=== PATIENT | male | born 1955 | race Caucasian/White ===

== ENCOUNTER 2017-09-01 17:12 | Emergency (ER) | payer MEDICARE, OTHER ==
[~2017-09-01] VITALS: Ht 172.7 cm; Wt 93.0 kg
[2017-09-01] MEDS ORDERED: IBUP800 PO (17:47)
[2017-09-01] MEDS ORDERED: AMPDEX10CR PO (17:48)
[2017-09-01] MEDS ORDERED: Omeprazole20 M1 PO (17:48)
[2017-09-01] MEDS ORDERED: TAMS.4ER PO (17:48)
[2017-09-01] MEDS ORDERED: IBUP600 PO (19:10)
[2017-09-01] MEDS ORDERED: Norco 5-325 Ta1 EACH PO (19:10)
[2017-09-05] MEDS ORDERED: Percocet 10-321 EACH PO (17:03)
== END 2017-09-01 19:27 | disposition home or self-care (01) ==
LOC: ER 17:12
DX: S42.291A Other displaced fracture of upper end of right humerus, initial encounter for closed fracture (principal); V86.56XA Driver of dirt bike or motor/cross bike injured in nontraffic accident, initial encounter; Z79.899 Other long term (current) drug therapy; K21.9 Gastro-esophageal reflux disease without esophagitis; F17.200 Nicotine dependence, unspecified, uncomplicated
CPT/HCPCS: 96372; 99283; J2405; J3010

== ENCOUNTER 2017-12-14 02:09 | Day surgery (SDC) | payer MEDICARE, OTHER ==
[~2017-12-14] VITALS: Ht 172.7 cm; Wt 94.0 kg
[~2017-12-14 02:09] MED LIST: AMPDEX10CR PO; AMPDEX5 PO; ASPI325 PO; ASPI325EC PO; ATOR40TA PO; IBUP400 PO; IBUP600 PO; IBUP800 PO; Norco 5-325 Ta1 EACH PO; Omeprazole20 M1 PO; Percocet 10-321 EACH PO; TAMS.4ER PO; TIMO 0.5%-DORZ 25 ML OP
[2017-12-14] MEDS ORDERED: METO25ER PO (06:34)
[2017-12-14] MEDS ORDERED: Isosorbide Mono30 MG PO (08:34)
== END 2017-12-14 12:40 | disposition home or self-care (01) ==
LOC: MHTC 02:09
DX: R07.9 Chest pain, unspecified (principal); R94.39 Abnormal result of other cardiovascular function study; R06.02 Shortness of breath; E78.5 Hyperlipidemia, unspecified; K21.9 Gastro-esophageal reflux disease without esophagitis; J44.9 Chronic obstructive pulmonary disease, unspecified; F17.210 Nicotine dependence, cigarettes, uncomplicated; I25.118 Atherosclerotic heart disease of native coronary artery with other forms of angina pectoris; I51.89 Other ill-defined heart diseases
CPT/HCPCS: 93306; 93458; 99152; 99153; C1769; C1894; J1644; J2250; J3010; J7030; Q9967

== ENCOUNTER 2018-06-13 19:05 | Emergency (ER) | payer MEDICARE, OTHER ==
[~2018-06-13] VITALS: Ht 172.7 cm; Wt 95.2 kg
[~2018-06-13 19:05] MED LIST changes: -ATOR40TA PO; +Advair Hfa 230-12 GM; +Amiodarone HCl200 MG PO; +Isosorbide Mono30 MG PO; -Omeprazole20 M1 PO; -TAMS.4ER PO; -TIMO 0.5%-DORZ 25 ML OP
[2018-06-13 20:34] LABS: Influenza A Negative (NEGATIVE); Influenza B Negative (NEGATIVE)
[2018-06-13 20:46] LABS: BASOPHILS ABSOLUTE AUTO 0.04 K/mm3 (0.00-0.23); BASOPHILS PERCENT AUTO 1 % (0-2); EOSINOPHILS ABSOLUTE AUTO 0.08 K/mm3 (0.00-0.68); EOSINOPHILS PERCENT AUTO 1 % (0-6); Hematocrit 46.2 % (37.0-53.0); Hemoglobin 15.1 g/dL (13.5-17.5); IMMATURE GRAN ABSOLUTE AUTO 0.03 K/mm3 (0.00-0.10); IMMATURE GRAN PERCENT AUTO 0 % (0-1); LYMPHOCYTES ABSOLUTE AUTO 0.98 K/mm3 (0.84-5.20); LYMPHOCYTES PERCENT AUTO 12 % (21-46); MONOCYTES ABSOLUTE AUTO 0.66 K/mm3 (0.16-1.47); MONOCYTES PERCENT AUTO 8 % (4-13); Mean Corpuscular HGB 30.4 pg (26.0-34.0); Mean Corpuscular HGB Conc 32.7 g/dL (31.5-36.5); Mean Corpuscular Volume 93 fL (80-100); Mean Platelet Volume 10.6 fL (9.1-12.4); NEUTROPHILS ABSOLUTE AUTO 6.41 K/mm3 (1.96-9.15); NEUTROPHILS PERCENT AUTO 78 % (41-73); Platelet Count 264 K/mm3 (150-400); RDW Coefficient Variation 15.6 % (11.7-14.2); RDW Standard Deviation 53.3 fL (35.1-46.3); Red Blood Cell Count 4.97 M/mm3 (4.30-5.90)
[2018-06-13 21:10] LABS: Troponin I 0.021 ng/mL (0.000-0.040)
[2018-06-13 21:12] LABS: Alanine Aminotransfer (ALT/SGP 50 U/L (12-78); Albumin, Blood 3.6 g/dL (3.4-5.0); Albumin/Globulin Ratio 0.9 (0.8-1.8); Alk Phos 176 U/L (50-136); Anion Gap 6 mmol/L (6-16); Aspartate Aminotrans (AST/SGOT 38 U/L (12-37); Bilirubin, Total 0.7 mg/dL (0.1-1.0); Blood Urea Nitrogen 7 mg/dL (8-24); Bun/Creatinine Ratio 8.5 (12.0-20.0); CO2, Blood 23 mmol/L (21-32); Calcium, Blood 8.7 mg/dL (8.5-10.1); Chloride, Blood 109 mmol/L (98-108); Creatinine, Blood 0.82 mg/dL (0.60-1.20); Globulin, Blood 4.2 g/dL (2.2-4.0); Glomerular Filtration Rate >60 (60-); Glucose, Blood 127 mg/dL (70-99); Potassium, Blood 3.6 mmol/L (3.5-5.5); Sodium, Blood 138 mmol/L (136-145); Total Protein, Blood 7.8 g/dL (6.4-8.2)
[2018-06-14 01:15] LABS: Source, Urine Clean Catch
[2018-06-14] MEDS ORDERED: Vibramycin100 MG PO (01:17)
[2018-06-14 01:18] LABS: Bilirubin, Urine Neg (Neg); Blood, Urine Neg (Neg); Glucose Qualitative, Urine Neg (Neg); Ketones, Urine 1+ (Neg); Leukocyte Esterase, Urine Neg (Neg); Nitrite, Urine Neg (Neg); Protein, Urine Neg (Neg); Urobilinogen, Urine 1+ (Normal)
[2018-06-14 01:19] LABS: Appearance, Urine Clear (Clear); Color, Urine Yellow (P-Yellow)
[2018-06-14 01:40] LABS: U Amphetamine Screen DETECTED; U Barbituate Screen Not Detected; U Benzodiazapine Screen Not Detected; U Buprenorphine Screen Not Detected; U Cannabinoids Screen DETECTED; U Cocaine Screen Not Detected; U Methadone Screen Not Detected; U Methamphetamine Screen DETECTED; U Opiates Screen Not Detected; U Oxycodone Screen Not Detected; U Phencyclidine Screen Not Detected; U Propoxyphene Screen Not Detected
[2018-06-14] MEDS ORDERED: Prednisone20 MG PO (01:57)
[2018-06-15] MEDS ORDERED: Amphetamine Sal20 MG PO (16:40)
[2018-06-15] MEDS ORDERED: ATOR40TA PO (16:41)
[2018-06-15] MEDS ORDERED: Doxycycline Hy100 MG PO (16:44)
[2018-06-15] MEDS ORDERED: IBUP800 PO (16:47)
[2018-06-15] MEDS ORDERED: FLUT1DIS5 INH (16:47)
[2018-06-15] MEDS ORDERED: METO50ER PO (16:48)
[2018-06-15] MEDS ORDERED: NITR.4SL SL (16:50)
[2018-06-15] MEDS ORDERED: Omeprazole20 M1 PO (16:50)
[2018-06-15] MEDS ORDERED: TAMS.4ER PO (16:51)
[2018-06-15] MEDS ORDERED: TIMOPTIC 0.25%1 EACH BOTHEYES (16:55)
[2018-06-15] MEDS ORDERED: ASPI325EC PO (16:57)
[2018-06-15] MEDS ORDERED: FURO20 PO (16:59)
[2018-06-15] MEDS ORDERED: POTCHL20ER PO (17:00)
== END 2018-06-14 02:28 | disposition home or self-care (01) ==
LOC: ER 19:05
PROVIDERS: Emergency Medicine; Physician Assistant
DX: J44.1 Chronic obstructive pulmonary disease with (acute) exacerbation (principal); F15.90 Other stimulant use, unspecified, uncomplicated; I25.10 Atherosclerotic heart disease of native coronary artery without angina pectoris; F17.210 Nicotine dependence, cigarettes, uncomplicated; Z88.1 Allergy status to other antibiotic agents; Z88.8 Allergy status to other drugs, medicaments and biological substances; Z79.899 Other long term (current) drug therapy; Z95.1 Presence of aortocoronary bypass graft
CPT/HCPCS: 36415; 71046; 80053; 81003; 83605; 84484; 85025; 87804; 93005; 93010; 94644; 96365; 96375; 99285-25; J0696; J1885; J2930; J7030

== ENCOUNTER 2018-06-15 15:51 | Observation (INO) | payer MEDICARE, OTHER ==
[~2018-06-15] VITALS: Ht 172.7 cm; Wt 94.8 kg
[~2018-06-15 15:51] MED LIST changes: -ALBU3IS INH; -ATOR40TA PO; -AZIT250 PO; -Amphetamine Sal20 MG PO; -Doxycycline Hy100 MG PO; -FLUT1DIS5 INH; -FURO20 PO; -METO50ER PO; -NICO21TP TOP; -NITR.4SL SL; -OXYC5 PO; -Omeprazole20 M1 PO; -POTCHL20ER PO; -PRED10 PO; -ROBITUSSIN100 MG/5 M PO; -TAMS.4ER PO; -TIMOPTIC 0.25%1 EACH BOTHEYES
[2018-06-15] MEDS ORDERED: Amphetamine Sal20 MG PO (16:40)
[2018-06-15] MEDS ORDERED: ATOR40TA PO (16:41)
[2018-06-15] MEDS ORDERED: Doxycycline Hy100 MG PO (16:44)
[2018-06-15] MEDS ORDERED: FLUT1DIS5 INH (16:47)
[2018-06-15] MEDS ORDERED: IBUP800 PO (16:47)
[2018-06-15] MEDS ORDERED: METO50ER PO (16:48)
[2018-06-15] MEDS ORDERED: Omeprazole20 M1 PO (16:50)
[2018-06-15] MEDS ORDERED: NITR.4SL SL (16:50)
[2018-06-15] MEDS ORDERED: TAMS.4ER PO (16:51)
[2018-06-15] MEDS ORDERED: TIMOPTIC 0.25%1 EACH BOTHEYES (16:55)
[2018-06-15] MEDS ORDERED: ASPI325EC PO (16:57)
[2018-06-15] MEDS ORDERED: FURO20 PO (16:59)
[2018-06-15] MEDS ORDERED: POTCHL20ER PO (17:00)
--- NOTE | 2018-06-15 18:45 | NUR ---
HANDOFF RECEIVED FROM ED RECEIVED REPORT FROM ED NURSE HUNG. PT WENT TO [facility] WITH SOB, ABD. PAIN WITH COUGH. [facility] SENT HIM TO US WITH ELEVATED TROPONINS 0.074. PT HX INCLUDES ASCVD, COPD, HEP C, A FIB, BLIND IN LEFT EYE
--- NOTE | 2018-06-16 00:47 | NUR ---
RESPIRATORY PANEL COLLECTED AND SENT TO LAB.
[2018-06-16 02:32] LABS: Hematocrit 44.2 % (37.0-53.0); Hemoglobin 14.7 g/dL (13.5-17.5); Mean Corpuscular HGB 30.9 pg (26.0-34.0); Mean Corpuscular HGB Conc 33.3 g/dL (31.5-36.5); Mean Corpuscular Volume 93 fL (80-100); Mean Platelet Volume 10.2 fL (9.1-12.4); Platelet Count 255 K/mm3 (150-400); RDW Coefficient Variation 15.9 % (11.7-14.2); RDW Standard Deviation 54.4 fL (35.1-46.3); Red Blood Cell Count 4.75 M/mm3 (4.30-5.90); White Blood Cell Count 8.75 K/mm3 (4.00-11.30)
[2018-06-16 02:51] LABS: Alanine Aminotransfer (ALT/SGP 69 U/L (12-78); Albumin, Blood 3.3 g/dL (3.4-5.0); Albumin/Globulin Ratio 0.9 (0.8-1.8); Alk Phos 131 U/L (50-136); Anion Gap 9 mmol/L (6-16); Aspartate Aminotrans (AST/SGOT 89 U/L (12-37); Bilirubin, Total 0.4 mg/dL (0.1-1.0); Blood Urea Nitrogen 19 mg/dL (8-24); CO2, Blood 20 mmol/L (21-32); Calcium, Blood 8.9 mg/dL (8.5-10.1); Chloride, Blood 110 mmol/L (98-108); Creatinine, Blood 0.79 mg/dL (0.60-1.20); Globulin, Blood 3.8 g/dL (2.2-4.0); Glomerular Filtration Rate >60 (60-); Glucose, Blood 142 mg/dL (70-99); Potassium, Blood 4.3 mmol/L (3.5-5.5); Sodium, Blood 139 mmol/L (136-145); Total Protein, Blood 7.1 g/dL (6.4-8.2)
[2018-06-16 03:12] LABS: Adenovirus Not Detected (NOT DETECT); Coronavirus 229E Not Detected (NOT DETECT); Coronavirus HKU1 Not Detected (NOT DETECT); Coronavirus NL63 Not Detected (NOT DETECT); Coronavirus OC43 Not Detected (NOT DETECT); Human Metapneumovirus Not Detected (NOT DETECT); Human Rhinovirus/Enterovirus Not Detected (NOT DETECT); Influenza A Not Detected (NOT DETECT); Influenza A/2009-H1 Not Detected (NOT DETECT); Influenza A/H1 Not Detected (NOT DETECT); Influenza A/H3 Not Detected (NOT DETECT); Influenza B Not Detected (NOT DETECT); Parainfluenza Virus 1 Not Detected (NOT DETECT); Parainfluenza Virus 2 Not Detected (NOT DETECT)
[2018-06-16 03:13] LABS: Bordetella pertussis Not Detected (NOT DETECT); Chlamydophila pneumoniae Not Detected (NOT DETECT); Mycoplasma pneumoniae Not Detected (NOT DETECT); Parainfluenza Virus 3 Not Detected (NOT DETECT); Parainfluenza Virus 4 Not Detected (NOT DETECT); Respiratory Syncytial Virus Detected (NOT DETECT)
--- NOTE | 2018-06-16 04:43 | NUR ---
SHIFT SUMMARY PATIENT HAD NO ACUTE CHANGES OBSERVED THIS SHIFT. AXO X 4 AND INDEPENDENT IN THE ROOM. BLIND LEFT EYE. USES URINAL AT BEDSIDE. TAKES MEDICATION WHOLE WITH WATER. PIV REMAINS INTACT. PLANT CONTROLLER REPORTS NSR 97 W/FIRST DEGREE. VSS/SFEBRILE. RESPIRATORY PANEL SENT TO LAB AND POSITIVE FOR RSV. DROPLET PRECAUTIONS. PATIENT REPORTED COUGH AND GUAFENESIN GIVEN PER EMAR. PATIENT COUGH REDUCED AND ABLE TO SLEEP. DENIES PAIN AND N/V. CALL LIGHT IN REACH. BED IN LOWEST POSITION. WILL CONTINUE TO MONITOR UNTIL DAY SHIFT NURSE ASSUMES CARE.
--- NOTE | 2018-06-16 07:52 | NUR ---
CALLED PT'S DR HUDSON REPORTING SEVERE ABDOMINAL PAIN. PT STATES HE FEELS HE HAS TORN SOMETHING INSIDE HIS STOMACH. PT STATES HE WISHES TO LEAVE IF THIS IS NOT INVESTIGATED. ORDERED 1 MG OF DILAUDID IV NOW, WHILE HE LOOKS IN TO THE PT'S CASE.
--- NOTE | 2018-06-16 09:08 | NUR ---
CALLED PHARMACY 06/16/18 AT 0900 HRS -TALKED TO ON-DUTY PHARMACIST I ASKED HER IF ADDERAL COULD CAUSE A DRUG SCREEN TO COME BACK POSITIVE FOR BOTH AMPHETAMINE AND METHAMPHETAMINE. SHE EMPHATICALLY STATED "YES, WITHOUT A DOUBT; ADDERAL DOES CAUSE A DRUG SCREEN TO COME BACK POSITIVE FOR AMPHETAMINE AND METHAMPHETAMINE".
--- NOTE | 2018-06-16 10:02 | NUR ---
PHARMACY CALLED PHARMACIST ELAINA CALLED TO CLARIFY ORDER FOR TIMOLOL EYE DROPS. PT STATES THE DROPS GO IN HIS LEFT EYE. PT STATES HE HAS NOT BEEN TAKING THEM HE IS ALREADY BLIND.
--- NOTE | 2018-06-16 13:59 | NUR ---
HOSPITALIST ROUNDED ON PT STATED THAT TROPONINS HAVE IMPROVED, DOWNTRENDING FROM 0.[address] INFORMED PT THAT THE SEVERE COUGHING FITS FROM HIS RSV HAS STRAINED/TORN HIS STOMACH MUSCLES, EXPLAINING THE SEVERE PAIN.
--- NOTE | 2018-06-16 14:13 | NUR ---
CALLED HOSPITALIST PT REFUSING TO WEAR TELEMETRY. STATES THAT HIS HEART IS NOT THE PROBLEM, RE-STATING THAT HIS STOMACH PAIN IS THE MAIN ISSUE THAT NEEDS ADDRESSED. CALLED TO ASK THAT TELEMETRY BE DISCONTINUED DUE TO PT REFUSAL TO WEAR IT. AGREED TO DISCONTINUE TELEMETRY.
--- NOTE | 2018-06-16 16:11 | NUR ---
SHIFT SUMMARY 62 YEAR OLD MALE ADMITTED FOR COPD EXACERBATION/ELEVATED TROPONIN LEVEL. PT IS A LIMITED CODE (NO CPR, DEFIB IS OKAY). HE IS IN CONTACT/DROPLET PRECAUTIONS FOR RSV. 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 HE IS A&O X4, INDEPENDENT. TODAY HE GOT AN ABDOMINAL BINDER TO HELP WITH HIS ABDOMINAL PAIN FROM COUGHING. ALSO THE HOSPITALIST ORDERED OXYCODONE FOR HIS ABDOMINAL PAIN. IT IS POSSIBLE THAT THE PT TORE/STRAINED AN ABDOMINAL MUSCLE WHILE COUGHING. PT PERIODICALLY REFUSES TREATMENTS, TESTS, AND MEDICATIONS. HE STATES IT IS BECAUSE HE IS IN PAIN AND/OR UPSET WITH HIS CARE. I FEEL THAT OVERALL TODAY WENT BETTER THAN YESTERDAY FOR THIS PATIENT.
[2018-06-17] MEDS ORDERED: AZIT250 PO (13:13)
[2018-06-17] MEDS ORDERED: ALBU3IS INH (13:13)
[2018-06-17] MEDS ORDERED: PRED10 PO (13:14)
[2018-06-17] MEDS ORDERED: NICO21TP TOP (13:14)
[2018-06-17] MEDS ORDERED: OXYC5 PO (13:15)
[2018-06-17] MEDS ORDERED: ROBITUSSIN100 MG/5 M PO (13:15)
--- NOTE | 2018-06-17 13:40 | NUR ---
PATIENT D/C'D TO HOME WITH . D/C ISNTRUCTIONS AND EDUCATION DISCUSSED WITH PATIENT AND COPY PROVIDED. MEDICATIONS FAXED TO [facility] IN [place]. PATIENT DENIES ANY FURTHER QUESTIONS OR CONCERNS.
== END 2018-06-17 13:39 | disposition home or self-care (01) ==
LOC: ER 15:51 → MEDS 15:52 → ER 17:20 → MEDS 17:20
PROVIDERS: Nurse Practitioner Acute Care; ADMIT Internal Medicine
DX: J44.0 Chronic obstructive pulmonary disease with (acute) lower respiratory infection (principal); J44.1 Chronic obstructive pulmonary disease with (acute) exacerbation; J20.5 Acute bronchitis due to respiratory syncytial virus; E78.5 Hyperlipidemia, unspecified; S39.011A Strain of muscle, fascia and tendon of abdomen, initial encounter; R77.8 Other specified abnormalities of plasma proteins; N40.0 Benign prostatic hyperplasia without lower urinary tract symptoms; I10 Essential (primary) hypertension; I25.10 Atherosclerotic heart disease of native coronary artery without angina pectoris; F32.9 Major depressive disorder, single episode, unspecified; E66.9 Obesity, unspecified; F17.210 Nicotine dependence, cigarettes, uncomplicated; Z95.1 Presence of aortocoronary bypass graft; Z79.899 Other long term (current) drug therapy; Z79.82 Long term (current) use of aspirin; Z88.8 Allergy status to other drugs, medicaments and biological substances; Z68.31 Body mass index [BMI] 31.0-31.9, adult
CPT/HCPCS: 36415; 80053; 83735; 84484; 85027; 87486; 87581; 87633; 87798; 93005; 93010; 94640; 94760; 96372-59; 96374; 96375; 99285-25; G0378; J1170; J1650; J2930

== ENCOUNTER → 2018-06-15 | Outpatient (CLI) | payer MEDICARE, OTHER ==
[~2018-06-15] MED LIST changes: +ALBU3IS INH; +ATOR40TA PO; +AZIT250 PO; +Amphetamine Sal20 MG PO; +Doxycycline Hy100 MG PO; +FLUT1DIS5 INH; +FURO20 PO; +METO50ER PO; +NICO21TP TOP; +NITR.4SL SL; +OXYC5 PO; +Omeprazole20 M1 PO; +POTCHL20ER PO; +PRED10 PO; +Prednisone20 MG PO; +ROBITUSSIN100 MG/5 M PO; +TAMS.4ER PO; +TIMOPTIC 0.25%1 EACH BOTHEYES; +Vibramycin100 MG PO
[2018-06-15 14:45] LABS: BASOPHILS ABSOLUTE AUTO 0.02 K/mm3 (0.00-0.23); BASOPHILS PERCENT AUTO 0 % (0-2); EOSINOPHILS ABSOLUTE AUTO 0.02 K/mm3 (0.00-0.68); EOSINOPHILS PERCENT AUTO 0 % (0-6); Hematocrit 45.3 % (37.0-53.0); Hemoglobin 15.3 g/dL (13.5-17.5); IMMATURE GRAN ABSOLUTE AUTO 0.05 K/mm3 (0.00-0.10); IMMATURE GRAN PERCENT AUTO 0 % (0-1); LYMPHOCYTES ABSOLUTE AUTO 0.48 K/mm3 (0.84-5.20); LYMPHOCYTES PERCENT AUTO 4 % (21-46); MONOCYTES ABSOLUTE AUTO 0.54 K/mm3 (0.16-1.47); MONOCYTES PERCENT AUTO 5 % (4-13); Mean Corpuscular HGB 30.7 pg (26.0-34.0); Mean Corpuscular HGB Conc 33.8 g/dL (31.5-36.5); Mean Corpuscular Volume 91 fL (80-100); Mean Platelet Volume 10.9 fL (9.1-12.4); NEUTROPHILS ABSOLUTE AUTO 10.56 K/mm3 (1.96-9.15); NEUTROPHILS PERCENT AUTO 91 % (41-73); Platelet Count 263 K/mm3 (150-400); RDW Coefficient Variation 16.1 % (11.7-14.2); RDW Standard Deviation 53.1 fL (35.1-46.3); Red Blood Cell Count 4.99 M/mm3 (4.30-5.90); White Blood Cell Count 11.67 K/mm3 (4.00-11.30)
[2018-06-15 14:59] LABS: Alanine Aminotransfer (ALT/SGP 78 U/L (12-78); Albumin, Blood 3.5 g/dL (3.4-5.0); Albumin/Globulin Ratio 0.9 (0.8-1.8); Alk Phos 144 U/L (40-126); Anion Gap 13 mmol/L (6-16); Aspartate Aminotrans (AST/SGOT 121 U/L (12-37); Bilirubin, Total 0.6 mg/dL (0.1-1.0); Blood Urea Nitrogen 13 mg/dL (8-24); Bun/Creatinine Ratio 11.4 (12.0-20.0); CO2, Blood 22 mmol/L (21-32); Calcium, Blood 8.7 mg/dL (8.5-10.1); Chloride, Blood 106 mmol/L (98-108); Creatinine, Blood 1.14 mg/dL (0.60-1.20); Globulin, Blood 4.1 g/dL (2.2-4.0); Glomerular Filtration Rate >60 (60-); Glucose, Blood 123 mg/dL (70-99); Potassium, Blood 4.3 mmol/L (3.5-5.5); Sodium, Blood 141 mmol/L (136-145); Total Protein, Blood 7.6 g/dL (6.4-8.2); Troponin I 0.074 ng/mL (0.000-0.040)
== END | disposition home or self-care (01) ==
LOC: LAB SHORT 14:37 → LAB EV 14:37
PROVIDERS: Physician Assistant Surgical
DX: R06.02 Shortness of breath (principal)
CPT/HCPCS: 80053; 83880; 84484; 85025

== ENCOUNTER 2018-07-27 09:04 | Day surgery (SDC) | payer MEDICARE, OTHER ==
[~2018-07-27] VITALS: Ht 173 cm; Wt 95.9 kg
[~2018-07-27 09:04] MED LIST changes: +ALBU3IS INH; +ALBU90OI61 INH; +ASPIRIN PO; +ATOR40TA PO; +AZIT250 PO; +Amphetamine Sal20 MG PO; +BUDE10.22 INH; +Doxycycline Hy100 MG PO; +FLUT1DIS5 INH; +FURO20 PO; +METO50ER PO; +NICO21TP TOP; +NITR.4SL SL; +OXYC5 PO; +Omeprazole20 M1 PO; +POTCHL20ER PO; +PRED10 PO; +ROBITUSSIN100 MG/5 M PO; +TAMS.4ER PO; +TIMOPTIC 0.25%1 EACH BOTHEYES
--- NOTE | 2018-07-27 09:28 | NUR ---
PT ADMITTED TO [facility]. AGREES WITH PLANNED SURGERY.
--- NOTE | 2018-07-27 12:20 | NUR ---
PT BROUGHT TO STEP AWAKE AND ORIENTED. VSS EXCEPT LOW SPO2. SCOOTED PATIENT UP IN BED AND ENCOURAGED DBC.
--- NOTE | 2018-07-27 13:23 | NUR ---
Patient up to Ambulate independently. Gait steady. Discharge instructions reviewed with patient. Patient verbalizes understanding. Copy given to patient to take home. Patient States Post-Procedure ride home has been arranged. Discharged via wheelchair to private car for ride home. ROSEMARIE PROVIDED RIDE HOME. PT JARREDS RETURNED TO HIM. SENT [employer] DRESSING HOME WITH PT PER DR GARCIA REQUEST. ICE TO R SHOULDER.
== END 2018-07-27 23:23 | disposition home or self-care (01) ==
LOC: ORSCMMR 09:04 → ORD 10:30 → ORSCMMR 23:23
PROVIDERS: Orthopaedic Surgery
PROC: 0PPF04Z Removal of Internal Fixation Device from Right Humeral Shaft, Open Approach (ICD-10-PCS; principal; 2018-07-27 10:30)
DX: T84.19 Other mechanical complication of internal fixation device of bones of limb (principal); I10 Essential (primary) hypertension; I25.10 Atherosclerotic heart disease of native coronary artery without angina pectoris; B19.20 Unspecified viral hepatitis C without hepatic coma; J44.9 Chronic obstructive pulmonary disease, unspecified; Z87.891 Personal history of nicotine dependence; K21.9 Gastro-esophageal reflux disease without esophagitis; Z79.899 Other long term (current) drug therapy; Z79.82 Long term (current) use of aspirin
CPT/HCPCS: 73030; J0330; J0690; J1100; J2250; J2370; J2405; J2704; J2710; J3010; J7120

== ENCOUNTER 2020-03-03 07:18 | Day surgery (SDC) | payer MEDICARE, OTHER ==
[~2020-03-03] VITALS: Ht 172.7 cm; Wt 103.0 kg
[~2020-03-03 07:18] MED LIST changes: +Adderall 20 MG20 MG PO; +NITR.4SL; +NITRO-DUR1 EAC1 TOP; +PREVAGEN PO
[2020-03-03] MEDS ORDERED: Nicoderm Cq1 EAC1 TOP (07:45)
[2020-03-03] MEDS ORDERED: CLOP75 PO (07:45)
--- NOTE | 2020-03-03 07:57 | NUR ---
Ambulatory in Day Surgery History, Chart, Medications and Allergies reviewed before start of procedure. Lungs clear T/O to Auscultation. Pre-Op teaching done. Pt verbalizes understanding.
--- NOTE | 2020-03-03 11:24 | NUR ---
Patient up to Ambulate independently. Gait steady. Discharge instructions reviewed with patient. Patient verbalizes understanding. Copy given to patient to take home. Patient States Post-Procedure ride home has been arranged. Discharged via wheelchair to private car for ride home. NO CHANGES IN LEFT BACK INCISION. ALL BELONINGS RETURNED TO PATIENT.
== END 2020-03-03 22:49 | disposition home or self-care (01) ==
LOC: ORD 07:18 → ORSCMMR 07:18 → ORD 07:30
PROVIDERS: Surgery
PROC: 0JBF0ZZ Excision of Left Upper Arm Subcutaneous Tissue and Fascia, Open Approach (ICD-10-PCS; principal; 2020-03-03 08:30)
DX: L72.0 Epidermal cyst (principal); I10 Essential (primary) hypertension; I25.2 Old myocardial infarction; I25.10 Atherosclerotic heart disease of native coronary artery without angina pectoris; J44.9 Chronic obstructive pulmonary disease, unspecified; F17.210 Nicotine dependence, cigarettes, uncomplicated; B19.20 Unspecified viral hepatitis C without hepatic coma; Z79.01 Long term (current) use of anticoagulants; Z79.82 Long term (current) use of aspirin; Z79.899 Other long term (current) drug therapy
CPT/HCPCS: 88304; A9270; J0171; J0690; J7120

== ENCOUNTER 2020-05-09 11:00 | Day surgery (SDC) | payer MEDICARE, OTHER ==
[~2020-05-09 11:00] MED LIST changes: +CLOP75 PO; +Nicoderm Cq1 EAC1 TOP; +Nitroglycerin1 EAC3
[2020-05-09] MEDS ORDERED: FLUT1DIS8 INH (12:46)
--- NOTE | 2020-05-09 14:34 | NUR ---
PT ARRIVED BACK TO RECOVERY ROOM IN RECLINER. LEFT RADIAL TR BAND SITE WITH WRIST BOARD IS SOFT NON-TENDER WITH NO HEMATOMA AND NO PULSATILE BLEEDING. PT DENIES CHEST PAIN. CALL LIGHT IN REACH. PT DRINKING SODA AND EATING LUNCH. CALL LIGHT IN REACH.
--- NOTE | 2020-05-09 16:04 | NUR ---
ATTEMPTED TO RELEASE AIR FROM TR BAND. PT BLED. TR BAND REINFLATED. WILL CONTINUE TO MONITOR,. VSS./ NADN. PT CONTINUES TO SLEEP AT THIS TIME. CALL LIGHT WITHIN REACH. FULL REPORT TO BRIANNA HUGGINS RN TO ASSUME CARE OF PATIENT
--- NOTE | 2020-05-09 16:29 | NUR ---
TR BAND DEFLATION STARTED, 2 CC AIR REMOVED. WILL CONTINUE TO MONITOR SITE WE CONTINUE TO REMOVE AIR. VSS. PT DENIES NEEDS AT THIS TIME.
--- NOTE | 2020-05-09 17:08 | NUR ---
TR BAND REMOVED FROM LEFT WRIST, RED CLOTH DOT DRESSING APPLIED. ARM BOARD ON FOR SUPPORT. IV REMOVED FROM LAC WITH CATH INTACT, PRESSURE DRESSING ON. PT VERBALIZED UNDERSTANDING OF D/C INSTRUCTIONS. PAPERWORK PROVIDED IN FOLDER. PT ARRIVES TO DRIVE HIM HOME. VSS. ENCOURAGED TO FOLLOW UP SCHEDULED WITH PROVIDER. NO ACUTE DISTRESS NOTED AT TIME OF D/C.
--- NOTE | 2020-05-09 17:30 | NUR ---
PT TAKEN OUT TO VEHICLE VIA W/C, NO ACUTE CHANGES.
== END 2020-05-09 17:30 | disposition home or self-care (01) ==
LOC: MHTC 11:00
DX: I25.718 Atherosclerosis of autologous vein coronary artery bypass graft(s) with other forms of angina pectoris (principal); I25.118 Atherosclerotic heart disease of native coronary artery with other forms of angina pectoris; I25.82 Chronic total occlusion of coronary artery; I25.5 Ischemic cardiomyopathy; I11.0 Hypertensive heart disease with heart failure; I50.22 Chronic systolic (congestive) heart failure; J44.9 Chronic obstructive pulmonary disease, unspecified; E78.5 Hyperlipidemia, unspecified; H54.8 Legal blindness, as defined in USA; Z79.82 Long term (current) use of aspirin; Z79.02 Long term (current) use of antithrombotics/antiplatelets; Z79.51 Long term (current) use of inhaled steroids; Z88.6 Allergy status to analgesic agent; Z88.8 Allergy status to other drugs, medicaments and biological substances
CPT/HCPCS: 76937; 85347; 93455; 99152; 99153; C1769; C1894; J1644; J7030; J7050; Q9967